=== PATIENT | female | born 1990 | race Caucasian/White ===

== ENCOUNTER 2021-05-14 11:38 | Emergency (ER) | payer OTHER, SELFPAY ==
[2021-05-14 12:01] VITALS: BP 135/75; PULSE 65; RESP 18; TEMP 36.7; O2SAT 99
--- NOTE | 2021-05-14 12:08 | ED.GENADULT ---
HPI - General Adult General Chief complaint: Unspecified Stated complaint: Medication Source: patient and RN notes reviewed Limitations: no limitations History of Present Illness HPI narrative: The patient, present mostly healthy good on mood meds, presents with medication refill. Patient states she has a history of anxiety disorder and unspecified depression type. She needs a refill of her medications since moving here from [place] and is currently asymptomatic. No prior hospitalizations, SI/HI, hallucinations, guilt, loss of concentration, anhedonia. Related Data Home Medications Medication Instructions Recorded Confirmed bupropion HCl [Wellbutrin XL] 300 mg PO DAILY 05/14/21 05/14/21 escitalopram oxalate [Lexapro] 20 mg PO DAILY 05/14/21 05/14/21 levonorgestrel [Mirena] 1 insert INTRAUTERINE ONCE 05/14/21 05/14/21 Allergies Allergy/AdvReac Type Severity Reaction Status Date / Time No Known Allergies Allergy Verified 05/14/21 12:02 Review of Systems Review of Systems: General/Constitutional: No weight loss,fever Eyes: N0: Redness,discharge Skin: No Lumps, eruption Neurologic: No Focal Weakness,Sz Psychiatric: No: Suicida ideationl PMFSH Comments At time of signature, agree with nursing past medical history. There is no relevant family history pertinent to the presenting complaint Exam Narrative: General Appearance: Well appearing, Conjunctiva clear Mouth/Throat: Normal appearing, Normal lips, Supple Respiratory: Airway patent, No respiratory distress Musculoskeletal: Full ROM,: Warm, Dry Neurological: A&O x3, CN II-X intact Psychiatric: Normal mood, Normal affect Course Vital Signs Vital signs: Vital Signs Temperature 98.0 F 05/14/21 12:01 Pulse Rate 65 05/14/21 12:01 Respiratory Rate 18 05/14/21 12:01 Blood Pressure 135/75 05/14/21 12:01 Pulse Oximetry 99 05/14/21 12:01 Temperature 98.0 F 05/14/21 12:01 Pulse Rate 65 05/14/21 12:01 Respiratory Rate 18 05/14/21 12:01 Blood Pressure 135/75 05/14/21 12:01 Pulse Oximetry 99 05/14/21 12:01 Medical Decision Making Vital Signs Vital Signs: Vital Signs Temperature 98.0 F 05/14/21 12:01 Pulse Rate 65 05/14/21 12:01 Respiratory Rate 18 05/14/21 12:01 Blood Pressure 135/75 05/14/21 12:01 Pulse Oximetry 99 05/14/21 12:01 Temperature 98.0 F 05/14/21 12:01 Pulse Rate 65 05/14/21 12:01 Respiratory Rate 18 05/14/21 12:01 Blood Pressure 135/75 05/14/21 12:01 Pulse Oximetry 99 05/14/21 12:01 Discharge Plan Discharge Clinical Impression: Encounter for medication refill Patient Disposition: Home, Self-Care Condition: Stable Instructions: Medicine Refill (ED) Prescriptions: New escitalopram oxalate [Lexapro] 20 mg tablet 20 mg PO DAILY Qty: 60 RF: 2 bupropion HCl [Wellbutrin XL] 300 mg tablet extended release 24 hr 300 mg PO QAM Qty: 60 RF: 2 No Action Mirena 20 mcg/24 hours (7 yrs) 52 mg Intrauterine Device 1 insert INTRAUTERINE ONCE RF: 0 escitalopram oxalate [Lexapro] 20 mg Tablet 20 mg PO DAILY RF: 0 bupropion HCl [Wellbutrin XL] 300 mg Tablet Extended Release 24 Hr 300 mg PO DAILY RF: 0 Follow-up/Referrals: PHYSICIAN,[facility] [Primary Care Provider] -
== END 2021-05-14 12:24 | disposition home or self-care (01) ==
PROVIDERS: Emergency Provider Emergency Medicine
DX: Z76.0 Encounter for issue of repeat prescription (principal)
CPT/HCPCS: 99211; G0463

== ENCOUNTER 2022-02-05 12:42 | Emergency (ER) | payer OTHER, SELFPAY ==
[2022-02-05 12:53] VITALS: BP 124/83; PULSE 82; RESP 18; TEMP 36.5; O2SAT 99
--- NOTE | 2022-02-05 13:02 | ED.GENADULT ---
HPI - General Adult General Chief complaint: Upper Respiratory Infection Stated complaint: sorethroat History of Present Illness HPI narrative: 31 y/o female. PMHx JUAN. Presents to [facility] today with acute complaints of sore throat, ongoing and worsening in the past 11 days. No fevers. No dyspnea or involuntary drooling. Denies cough, congestion. Sub-therapeutic relief with home OTC remedy. Client reports to have had negative home Covid test x 3. No additional acute c/o upon PE. Related Data Home Medications Medication Instructions Recorded Confirmed bupropion HCl 300 mg 24 hr tablet, 300 mg PO DAILY 05/14/21 05/14/21 extended release (Wellbutrin XL) levonorgestrel 20 mcg/24 hours (7 1 insert intrauterine ONCE 05/14/21 05/14/21 yrs) 52 mg intrauterine device (Mirena) aripiprazole 2 mg tablet 2 mg DAILY 02/05/22 02/05/22 aripiprazole 5 mg tablet 5 mg DAILY 02/05/22 02/05/22 desvenlafaxine succinate 100 mg 100 mg PO DAILY 02/05/22 02/05/22 tablet,extended release 24 hr pantoprazole 40 mg tablet,delayed 40 mg PO DAILY 02/05/22 02/05/22 release Allergies Allergy/AdvReac Type Severity Reaction Status Date / Time No Known Allergies Allergy Verified 02/05/22 13:00 Review of Systems Review of Systems: CONSTITUTIONAL: Denies fever, chills, sweats. EYES: Denies visual changes, redness, discharge. ENT: Denies rhinorrhea, congestion, otalgia. Positive sore throat. CARDIOVASCULAR: Denies chest pain, palpitations, edema. RESPIRATORY: Denies dyspnea, wheezing, cough GASTROINTESTINAL: Denies abdominal pain, nausea, vomiting, diarrhea. GENITOURINARY: Denies dysuria, hematuria, abnormal discharge SKIN: Denies rash or itching. MUSCULOSKELETAL: Denies acute back pain, joint pain, or myalgia. NEUROLOGIC: Denies numbness, or focal weakness. PSYCHIATRIC: Denies anxiety or depression. Exam Narrative: GENERAL: This is a well-nourished, well-developed adult, in no apparent distress. HEAD: normocephalic, atraumatic. EYES: PERRL. Sclera clear/white. EARS: External ears normal, auditory canals clear and without drainage, TMs normal. NOSE: External nose normal. Positive Rhinorrhea, no obstruction, nares patent. THROAT: Mucous membranes moist, posterior pharynx is erythematous, no exudative changes. NECK: Neck supple, non-tender without lymphadenopathy, masses or thyromegaly. CARDIOVASCULAR: Regular rate and rhythm without murmurs, gallops, or rubs. RESPIRATORY: Clear to auscultation. GASTROINTESTINAL: Abdomen soft, non-tender, nondistended. SKIN: warm, intact NEURO: Alert, active, and age appropriate. No focal neurologic deficits. Course Course Level of Care: Express Care Visit Vital Signs Vital signs: Vital Signs Temperature 36.5 C 02/05/22 12:53 Pulse Rate 82 02/05/22 12:53 Respiratory Rate 18 02/05/22 12:53 Blood Pressure 124/83 02/05/22 12:53 Pulse Oximetry 99 02/05/22 12:53 Oxygen Delivery Room Air 02/05/22 12:53 Temperature 36.5 C 02/05/22 12:53 Pulse Rate 82 02/05/22 12:53 Respiratory Rate 18 02/05/22 12:53 Blood Pressure 124/83 02/05/22 12:53 Pulse Oximetry 99 02/05/22 12:53 Oxygen Delivery Room Air 02/05/22 12:53 Medical Decision Making [facility] Narrative Medical decision making narrative: -Afebrile, non-tachycardic, appears non-toxic. -No hypoxemia, no respiratory distress. -PE Consistent with pharyngitis, S/S > 11 days at this point. -Amoxicillin OP regimen as directed. -May resume all additional OTC remedies prn for symptomatic reliefs. -PCP F/U 1 WK. Differential Diagnosis Differential Diagnosis: Differential Diagnosis: Consideration of the following conditions may be warranted for the presenting problem, they are not final diagnoses: upper respiratory infection, otitis media, sinusitis, RSV viral infection, bronchitis, pharyngitis, Streptococcal sore throat, COVID-19, and other. Vital Signs Vital Signs: Vit
== END 2022-02-05 13:06 | disposition home or self-care (01) ==
PROVIDERS: Emergency Provider Nurse Practitioner Adult Health
DX: J06.9 Acute upper respiratory infection, unspecified (principal); J02.9 Acute pharyngitis, unspecified; F41.1 Generalized anxiety disorder
CPT/HCPCS: 99213; G0463